=== PATIENT | male | born 2000 | race Caucasian/White ===

== ENCOUNTER 2020-10-30 10:03 | Emergency (ER) | payer OTHER, SELFPAY ==
[2020-10-30 10:14] VITALS: BP 119/72; PULSE 80; RESP 16; TEMP 37.4; O2SAT 100
--- NOTE | 2020-10-30 11:05 | ED.GENADULT ---
HPI - General Adult General Chief complaint: Abdominal Pain Stated complaint: Stomach pain Time Seen by Provider: 10/30/20 11:05 Source: patient, RN notes reviewed and old records reviewed Mode of arrival: ambulatory Limitations: no limitations History of Present Illness HPI narrative: 19-year-old male who presents to [facility] with complaints of intermittent mid abdominal pain which has been waxing and waning since Wednesday evening. Patient reports that he had his second Pfizer COVID immunization on Wednesday and his abdominal pain started that evening. He denies any fevers, chills or sweats, denies any nausea or vomiting, states one episode of diarrhea. He reports no painful urination, urgency or frequency, denies any suprapubic pain or any CVA tenderness. Patient reports no other ill symptoms. On observation patient is noted to have jaundice to bilateral sclera.Patient denies any tobacco, alcohol or illicit drug use. Related Data Home Medications Medication Instructions Recorded Confirmed escitalopram oxalate [Lexapro] 10 mg PO DAILY 10/30/20 10/30/20 Allergies Allergy/AdvReac Type Severity Reaction Status Date / Time No Known Allergies Allergy Verified 10/30/20 10:28 Review of Systems Review of Systems: CONSTITUTIONAL: Denies fever, chills, or sweats. EYES: Denies visual changes, redness, or discharge.sclera noted to have bilateral jaundice ENT: Denies rhinorrhea, congestion, sore throat, or otalgia. CARDIOVASCULAR: Denies chest pain, palpitations, or edema. RESPIRATORY: Denies cough or dyspnea. GASTROINTESTINAL: Positive for intermittent mid abdominal pain,no nausea, vomiting, one episode of diarrhea. GENITOURINARY: Denies dysuria or hematuria. SKIN: Denies rash or itching. MUSCULOSKELETAL: Denies back pain, joint pain, or myalgia. NEUROLOGIC: Denies headache, numbness, or weakness. PSYCHIATRIC: Positive for history of anxiety or depression. All systems reviewed & are unremarkable except as noted in HPI and below PMFSH Past Medical History Medical History (Updated 11/01/20 @ 08:41 by Juana Villanueva NP) Anxiety Surgical History Surgical History (Updated 10/30/20 @ 11:23 by Juana Villanueva NP) No history of previous surgery Family History Family History (Updated 10/30/20 @ 11:23 by Juana Villanueva NP) Grandparent Breast cancer Diabetes mellitus Social History Social History (Updated 10/30/20 @ 11:24 by Juana Villanueva NP) Smoking status: Never smoker Alcohol intake: never Substance use: never Living arrangements: with family Gender identity (if verbalized by the patient): Male Comments At time of signature, agree with nursing past medical, surgical, social and family history. There is no relevant family history pertinent to the presenting complaint Exam Narrative: GENERAL: Well-appearing, well-nourished, and in no acute distress.anxious HEAD: Normocephalic, atraumatic. EYES: PERRLA and EOMI.bilateral sclera jaundice noted ENT: Nares clear, no rhinorrhea or epistaxis. Mucous membranes moist. NECK: Supple. No lymphadenopathy CHEST: Clear to auscultation. No respiratory distress. SaO2 100% HEART: Regular rate and rhythm. No murmur heard. Normal peripheral pulses. ABDOMEN: Soft, nontender to palpation, nondistended, normal active bowel sounds. no spleen or liver enlargement noted on exam EXTREMITIES: Normal range of motion. No edema. SKIN: Warm, dry, no rash. NEURO: No focal deficits. Alert and oriented x3. Course Vital Signs Vital signs: Vital Signs Temperature 37.4 C 10/30/20 10:14 Pulse Rate 80 10/30/20 10:14 Respiratory Rate 16 10/30/20 10:14 Blood Pressure 119/72 10/30/20 10:14 Pulse Oximetry 100 10/30/20 10:14 Temperature 37.4 C 10/30/20 10:14 Pulse Rate 80 10/30/20 10:14 Respiratory Rate 16 10/30/20 10:14 Blood Pressure 119/72 10/30/20 10:14 Pulse Oximetry 100 10/30/20 10:14 [facility]
== END 2020-10-30 11:40 | disposition short-term general hospital (02) ==
PROVIDERS: Emergency Provider Registered Nurse
DX: R10.9 Unspecified abdominal pain (principal); T50.B95A Adverse effect of other viral vaccines, initial encounter; R17 Unspecified jaundice; F41.9 Anxiety disorder, unspecified
CPT/HCPCS: 81003; 87086; 87088; 99212; G0463